=== PATIENT | female | born 1945 | race African-American/Black ===

== ENCOUNTER 2017-05-14 00:07 | Inpatient (IN) | payer OTHER ==
[~2017-05-14] VITALS: Ht 157.5 cm; Wt 73.9 kg
[~2017-05-14 00:07] MED LIST: ASPIRIN ADULT L81 M3 PO; ATORVASTATIN CA40 M1 PO; CHILDREN S PO; FLUTICASON0.05 MG/Ac NS; ISOSORBIDE MONO60 MG PO; LASIX20 MG PO; MORPHINE SULFAT15 M5; MORPHINE SULFAT30 M1 PO; MULTI VITAMINS1 TA1; MULTI VITAMINS1 TAB PO; OXYCODONE HYDRO15 MG PO; OXYCODONE30 MG PO; PLA75 PO; POTASSIUM; VITAMIN B12
--- NOTE | 2017-05-14 00:24 | NUR ---
RECEIVED A 71 Y/O F FOR CP SINCE 1930. BIB [facility]. PT REFUSED IV START IN THE FIELD, WAS GIVEN ASA 324 MG PO AND 1 NITRO SL. PT NOTED TO BE FALLING ASLEEP DURING ASSESSMENT. PT PLACED IN GOWN, PT REFUSED TO TAKE OFF HER BRA. PT PLACE D IN CM, PULSE OX AND BP CUFF. WILL CONTINUE TO MONITOR FOR SAFETY
--- NOTE | 2017-05-14 00:45 | NUR ---
MSE DONE BY DR OVALLES
[2017-05-14 01:26] LABS: CALCIUM 8.5 mg/dL (8.5-10.1); CARBON DIOXIDE 27.9 mmol/L (21-32); CHLORIDE SERUM 106 mmol/L (98-107); CREATININE SERUM 0.8 mg/dL (0.6-1.0); GLUCOSE SERUM 99 mg/dL (74-106); POTASSIUM SERUM 3.8 mmol/L (3.5-5.1); SODIUM SERUM 140 mmol/L (136-145)
[2017-05-14 01:27] LABS: PLATELET COUNT 182 x10^3mcL (130-400)
[2017-05-14 01:31] LABS: ALKALINE PHOSPHATASE 95 U/L (46-116); ALT/SGPT 23 U/L (14-59); AST/SGOT 28 U/L (15-37); BILIRUBIN TOTAL 0.3 mg/dL (0.20-1.00); TOTAL PROTEIN, SERUM 6.7 g/dL (6.4-8.2)
[2017-05-14 01:33] LABS: ALBUMIN 3.3 g/dL (3.4-5.0)
--- NOTE | 2017-05-14 01:53 | NUR ---
PT RESTING COMFORTABLY IN BED. PT IN NAD
[2017-05-14 02:09] LABS: BAND NEUTROPHIL 3 % (0-10); BASOPHIL 1 % (0-2); MONOCYTE 7 % (0-7); SEGMENTED NEUTROPHILS 39 % (37-75); rbc morphology (normal/abnorm) NORMAL (NORMAL)
[2017-05-14 02:10] LABS: PLATELET MORPHOLOGY PLATELETS NORMAL
[2017-05-14] MEDS ORDERED: METOPROLOL TART25 M1 PO (03:27)
[2017-05-14] MEDS ORDERED: ENALAPRIL MALE2.5 MG PO (03:28)
[2017-05-14] MEDS ORDERED: ISOSORBIDE MONO30 MG PO (03:29)
[2017-05-14] MEDS ORDERED: LIPITOR40 MG PO (03:30)
[2017-05-14] MEDS ORDERED: CEPHALEXIN500 MG PO (03:30)
[2017-05-14] MEDS ORDERED: CLOPIDOGREL75 M1 PO (03:30)
--- NOTE | 2017-05-14 03:39 | NUR ---
REPORT GIVEN TO MONSTER.
--- NOTE | 2017-05-14 03:50 | NUR ---
ATTEMPTED TO INSERT AN IV TWICE. NO SUCCESS. OTHER STAFF MEMBER WILL ATTEMPT IV START
--- NOTE | 2017-05-14 04:21 | NUR ---
PT TRANSPORTED TO [facility] VIA [facility] ON CM BY NICK AMIN AND PERLITA MURRAY. PT IN NAD
[2017-05-14 04:40] VITALS: BP 118/60
--- NOTE | 2017-05-14 05:00 | NUR ---
PATIENT RECEIVED FROM ED VIA [facility] ASSISTED BY RN. PATIENT C/O 9/10 SHARP CHEST PAIN AT THIS TIME. WILL MEDICATE PER DOCTOR'S ORDER. IV SITE TO RIGHT FOREARM, PATENT AND INTACT. IV FLUID STARTED PER DOCTOR'S ORDER. PATIENT ORIENTED TO ROOM AND CALL LIGHT. BED IN LOWEST POSITION. CALL LIGHT WITHIN REACH. WILL CONTINUE TO MONITOR.
[2017-05-14 05:34] VITALS: BP 118/60
--- NOTE | 2017-05-14 07:11 | NUR ---
BEDSIDE REPORT RECEIVED FROM [facility] SHIFT NURSE AT THIS TIME. PATIENT ASLEEP SITTING UP RIGHT WITH CHIN TO CHEST, BREATHING EVEN AND UNLABORED. ALL SAFETY MEASURES IN PLACE, WILL CONTINUE TO MONITOR.
[2017-05-14 07:38] VITALS: BP 131/64
--- NOTE | 2017-05-14 07:38 | NUR ---
PATIENT ASLEEP, AROUSABLE VIA TACTILE STIMULI, REMAINS SLEEPY WITH EYES SEMI CLOSED THROUGHOUT ASSESSMENT. MID STERNAL PAIN PRESENT PER PATIENT, TELE#[id number], HR 75. SCD'S IN PLACE, ON ROOM AIR. NS INFUSING TO RFA AT 30 ML/HR, NO REDNESS OR INFILTRATION NOTED TO SITE. CALM AND COOPERATIVE WITH CARE, ALL SAFETY MEASURES IN PLACE, WILL CONTINUE TO MONITOR.
--- NOTE | 2017-05-14 08:00 | NUR ---
ROUNDS MADE AT THIS TIME WITH MD TEAM, CHARGE NURSE MAYA, AND DR WOLFE. PATIENT AWAKE, ALERT, EATING BREAKFAST, REPORTS NO CONCERNS. ALL SAFETY MEASURES IN PLACE, WILL CONTINUE TO MONITOR.
--- NOTE | 2017-05-14 08:45 | NUR ---
DR NIELSEN IN TO ASSESS PATIENT AT THIS TIME. PATIENT ASLEEP, EASILY AROUSED VIA VERBAL STIMULI. WILL CONTINUE TO MONITOR.
--- NOTE | 2017-05-14 09:00 | NUR ---
CALL FROM [facility] ASSISTANT STATING PATIENT REFUSED LAB DRAW, PATIENT STATES SHE DOES NOT WANT TO BE POKED AGAIN, AND SHE IS A HARD STICK. PATIENT AROUSABLE VIA TACTILE STIMULI BUT STILL SLEEPY. WILL CONTINUE TO MONITOR.
[2017-05-14 09:43] LABS: MAGNESIUM 2.1 mg/dL (1.8-2.4)
[2017-05-14 09:51] LABS: FREE T4 0.99 ng/dL (0.76-1.46); FREE THYROXINE INDEX 2.2 ug/dL (1.4-4.5); T4(THYROXINE) 7.1 ug/dL (4.7-13.3)
[2017-05-14 09:59] LABS: CHOLESTEROL/HDL RATIO 2.1
[2017-05-14 10:06] LABS: T3 TOTAL 1.56 ng/mL
--- NOTE | 2017-05-14 10:48 | NUR ---
PATIENT AWAKE, ALERT, NO SIGNS OF DISTRESS NOTED, WATCHING TV, NURSE AID FREDIA AT BEDSIDE ATTENDING TO NEEDS, WILL CONTINUE TO MONITOR.
[2017-05-14 11:51] VITALS: Ht 157.5 cm; Wt 73.9 kg
--- NOTE | 2017-05-14 12:39 | NUR ---
PATIENT AWAKE, ALERT, NO SIGNS OF DISTRESS NOTED. WATCHING TV, ALL SAFETY MEASURES IN PLACE, WILL CONTINUE TO MONITOR.
[2017-05-14 13:47] VITALS: BP 112/43
[2017-05-14 16:40] VITALS: BP 118/56
--- NOTE | 2017-05-14 19:20 | NUR ---
PATIENT RECEIVED RESTING WITH EYES CLOSED. AWAKENS WITH VERBAL STIMULUS. NO DISTRESS NOTED. PATIENT C/O 9/10 SHARP CHEST PAIN. WILL MEDICATE PER DOCTOR'S ORDER. IV SITE TO RIGHT FOREARM, INFILTRATED. WILL DC AND REINSERT. BED IN LOWEST POSITION. CALL LIGHT WITHIN REACH. WILL CONTINUE TO MONITOR.
--- NOTE | 2017-05-14 20:00 | NUR ---
IV DC'D FROM RIGHT FOREARM, 22G REINSERTED TO LEFT FOREARM, PATENT. IV FLUID RESTARTED PER DOCTOR'S ORDER.
[2017-05-14 20:04] LABS: RED BLOOD CELLS 3.5 M/mm3 (4.10-5.10)
--- NOTE | 2017-05-14 21:25 | NUR ---
NOTIFIED DR WILSON PATIENT HAS BLOOD PRESSURE MEDICATION SCHEDULED FOR TONIGHT AND IS ALSO REQUESTING PAIN MEDICATION BUT CONTINUES TO REFUSE VITALS TO BE TAKEN.
--- NOTE | 2017-05-14 22:40 | NUR ---
RECEIVED REPORT FROM BRENNAN HOOK. PT RESTING WITH EYES CLOSED. AROUSABLE WITH VERBAL STIMULUS. NO DISTRESS NOTED. IV ON LFA, NS INFUSING. SAFETY MEASURES IN PLACE. INSTRUCTED PT TO CALL IF ASSISTANCE IS NEEDED. CALL LIGHT WITHIN REACH.
[2017-05-14 22:45] VITALS: BP 116/55
[2017-05-15 06:32] VITALS: BP 135/65
[2017-05-15 06:44] LABS: microscopic required? NO
[2017-05-15 06:58] LABS: PLATELET COUNT 174 x10^3mcL (130-400)
--- NOTE | 2017-05-15 06:58 | NUR ---
PT SLEPT AT LONG INTERVALS DURING SHIFT. C/O NECK PAIN X1, MEDICATED WITH OXYCODONE PER ORDER. SAFETY MEASURES MAINTAINED. ALL NEEDS ATTENDED TO. CALL LIGHT WITHIN REACH. WILL ENDORSE CONTINUITY OF CARE TO ONCOMING RN.
[2017-05-15 07:00] LABS: urine erythrocyte NEGATIVE (NEGATIVE)
[2017-05-15 07:06] LABS: CALCIUM 8.4 mg/dL (8.5-10.1); CARBON DIOXIDE 28.2 mmol/L (21-32); CHLORIDE SERUM 106 mmol/L (98-107); CREATININE SERUM 0.7 mg/dL (0.6-1.0); GLUCOSE SERUM 111 mg/dL (74-106); MAGNESIUM 2.1 mg/dL (1.8-2.4); PHOSPHOROUS 3.4 mg/dL (2.5-4.9); POTASSIUM SERUM 3.8 mmol/L (3.5-5.1); SODIUM SERUM 140 mmol/L (136-145)
[2017-05-15 07:13] LABS: IRON 39 ug/dL (50-170); TOTAL IRON BINDING CAPACITY 367 ug/dL (250-450)
[2017-05-15 07:16] VITALS: BP 127/48
--- NOTE | 2017-05-15 07:16 | NUR ---
BEDSIDE REPORT RECEIVED FROM [facility] SHIFT NURSE AT THIS TIME. PATIENT AWAKE, ALERT, NO SIGNS OF DISTRESS NOTED. VITAL SIGNS TAKEN, BP 127/48, HR 74, RR 20, SPO2 95% ON ROOM AIR, T 98.2, PATIENT REFUSING MORNING BP MEDS (SEE EMAR). DENIES CHEST PAIN, MILD DIZZINESS, TELE# [id number]. SCD'S IN PLACE, NS INFUSING TO LFA AT 30 ML/HR, NO REDNESS OR INFILTRATION NOTED TO SITE. PATIENT WITHDRAWS AND PUTS ARMS UP THROUGHOUT ASSESSMENT STATING "THAT'S ENOUGH", PLACES HANDS ON MINE THROUGHOUT ASSESSMENT. ALL SAFETY MEASURES REVIEWED AND IN PLACE, WILL CONTINUE TO MONITOR.
[2017-05-15 09:10] LABS: BAND NEUTROPHIL 2 % (0-10); BASOPHIL 0 % (0-2); MONOCYTE 11 % (0-7); SEGMENTED NEUTROPHILS 41 % (37-75)
--- NOTE | 2017-05-15 09:10 | NUR ---
DR WOLFE AND MYSELF WENT TO THE ROOM TO UPDATE CARE PLAN. DR WOLFE APPROACHED PATIENT ABOUT REFUSING BLOOD DRAWN AND PATIENT DENIED. SHE SAID THAT DR WOLFE HAS WRONG INFORMATION, NIALL COOPER IS LYING AND SHE NEVER REFUSED BLOOD DRAWN. SHE ALSO MENTIONED THAT HER FAMILY IS OUT OF TOWN AND THEY MAY HAVE TO FLY BACK NOW BECAUSE OF THIS. INFORMATION WAS VERIFIED WITH ATTENDING NURSE CORAL WHO CONFIRMED THAT PATIENT REFUSED YESTERDAY BLOOD TO BE DRAWN FOR TROPONIM LEVEL.
[2017-05-15 09:12] LABS: rbc morphology (normal/abnorm) ABNORMAL (NORMAL)
[2017-05-15 09:13] LABS: ovalocyte/elliptocyte 1+
--- NOTE | 2017-05-15 09:30 | NUR ---
DR WOLFE AND DR DONOHUE IN TO ASSESS PATIENT AT THIS TIME. WILL CONTINUE TO MONITOR.
--- NOTE | 2017-05-15 09:38 | NUR ---
WENT BACK TO THE ROOM WITH DR WOLFE WHO INFORMED THE PATIENT THAT THREE PHLEBOTOMISTS:JD, DOMONIQUE AND ALEC ALL SAID THAT SHE REFUSED THE BLOOD DRAWN FOR TROPONIM YESTERDAY. PATIENT VERY UPSET AND STATING THAT SHE WILL COMPLAIN TO HER DAUGHTER WHO IS A DOCTOR. dR. Wolfe OFFERED TO CALL THE PT'S DAUGHTER AND DISCUSS THE SITUATION AND PT'S CONDITION WITH THE DAUGHTER, HOWEVER, PT REFUSED STATING THAT HER DAUGHTER IS ON VACATION AND EVEN SHE IS NOT SUPPOSED TO BE CALLING HER. dR WOLFE STATED THAT WE CAN HAVE THE AERONAUTICAL ENGINEERING PROFESSOR COME BACK AND DRAW THE TROPONINS NOW, BUT PATIENT IS NOW STATING THAT SHE WANTS TO TALK TO THE AERONAUTICAL ENGINEERING PROFESSOR ABOUT THE BANDAID ON HER ARM YESTERDAY AND WHERE IT CAME FROM BEFORE SHE AGREES TO TAKE ANY MORE BLOOD TESTS. SHE ALSO WROTE DOWN EVERYTHING WE WERE SAYING AND ACCUSED CHARGE NURSE OF , MYSELF, OF MOVING HER NECK.
--- NOTE | 2017-05-15 09:40 | NUR ---
PAGE SENT TO DR NIELSEN AT THIS TIME REGARDING PATIENT REFUSING LASIX, COLACE, METOPROLOL, AND VASOTEC (SEE EMAR), BP 127/48. WILL CONTINUE TO MONITOR.
--- NOTE | 2017-05-15 12:36 | NUR ---
PATIENT RESTING IN BED, TALKING ON CELL PHONE, NO SIGNS OF DISTRESS NOTED, WILL CONTINUE TO MONITOR.
[2017-05-15 13:40] VITALS: BP 135/39
--- NOTE | 2017-05-15 16:19 | NUR ---
PATIENT SLEEPING, NO SIGNS OF DISTRESS NOTED, BREATHING EVEN AND UNLABORED, WILL CONTINUE TO MONITOR.
[2017-05-15 17:30] VITALS: BP 134/54
--- NOTE | 2017-05-15 19:01 | NUR ---
PATIENT REFUSING IVF FLUIDS, DR NIELSEN MADE AWARE, WILL ENDORSE CARE.
--- NOTE | 2017-05-15 19:25 | NUR ---
RECEIVED REPORT FROM DAY SHIFT RN. PT AWAKE, SITTING UP IN BED. NO DISTRESS NOTED. PT REFUSED IV FLUIDS. SALINE LOCK ON LFA, INTACT. SAFETY MEASURES IN PLACE. INSTRUCTED PT TO CALL IF ASSISTANCE IS NEEDED. CALL LIGHT WITHIN REACH.
--- NOTE | 2017-05-15 19:55 | NUR ---
PT C/O PAIN ON THE RIGHT SIDE OF NECK. DR NAYLOR MADE AWARE.
--- NOTE | 2017-05-15 20:05 | NUR ---
DR NAYLOR IN PT'S ROOM TALKING TO THE PATIENT AT THIS TIME.
[2017-05-15 21:30] VITALS: BP 116/47
--- NOTE | 2017-05-15 21:35 | NUR ---
PT C/O UPPER CHEST SORENESS/PAIN. DR NAYLOR AT BEDSIDE ASSESSING THE PT.
--- NOTE | 2017-05-15 23:37 | NUR ---
REPORT GIVEN TO BRENNAN RODRIGUEZ. PT SLEEPING AT THIS TIME. NO DISTRESS NOTED. ENDORSED CONTINUITY OF CARE.
--- NOTE | 2017-05-15 23:37 | NUR ---
RECEIVED REPORT FROM BRENNAN ELMORE FOR PT'S CONTINUITY OF CARE. PT SLEEPING COMFORTABLY IN NO DISTRESS. WILL CONT TO MONITOR.
--- NOTE | 2017-05-16 04:52 | NUR ---
PT SLEPT COMFORTABLY THROUGH OUT THE NIGHT. WAS IN NO ACUTE DISTRESS OR DISCOMFORT. SAFETY MEASURES WERE ENSURED. CALL LIGHT WITHIN REACH.
[2017-05-16 05:30] VITALS: BP 127/62
--- NOTE | 2017-05-16 08:16 | NUR ---
A+OX4, FORGETFUL AT TIMES, DENIES NAUSEA, SOB, AND HEADACHE, PULSES STRONG AND EQUAL BILATERALLY, SCDS PRESENT, LUNG SOUNDS CLEAR, TOLERATING ROOM AIR, BOWEL SOUNDS ACTIVE, VOIDING, GENERALIZED WEAKNESS, SPECIFIC WEAKNESS AND PAIN IN NECK, BACK, AND KNEE, SKIN INTACT, IV IN LFA, SITE WNL, REFUSING IV FLUIDS. PT CONSTANTLY USING CALL LIGHT, VERY DEMANDING AND NEEDY.
[2017-05-16 08:19] VITALS: BP 141/68
--- NOTE | 2017-05-16 08:39 | NUR ---
PT REFUSING TO TAKE 0800 AND 0900 MEDICATIONS AT ONE TIME. STATES SHE MUST TAKE 2 PILLS EVERY 30 MINUTES. TO COMPLY WITH THIS REQUEST, MEDS MAY BE ADMINISTERED LATE.
--- NOTE | 2017-05-16 09:49 | NUR ---
PT COMPLAINING OF SOB, PLACED ON NC 2 L, REQUESTING "MEDICATION PACKAGE" THAT SHE BROUGHT IN WHEN SHE WAS ADMITTED, USES CALL LIGHT FREQUENTLY, REQUESTS TO SPEAK WITH DR FREQUENTLY.
[2017-05-16] MEDS ORDERED: FER300 PO (10:47)
[2017-05-16] MEDS ORDERED: VITC PO (10:49)
--- NOTE | 2017-05-16 11:06 | NUR ---
PT REFUSING TO TAKE VITAMIN C PO AND FERROUS SULFATE PO UNTIL HER LUNCH ARRIVES.
--- NOTE | 2017-05-16 12:00 | NUR ---
PT USING BEDSIDE COMMODE, NO RESPIRATORY DISTRESS NOTED, USES CALL LIGHT CONSTANTLY, DEMANDING, UNCOOPERATIVE.
[2017-05-16 12:03] VITALS: BP 141/68
--- NOTE | 2017-05-16 12:49 | NUR ---
PT SITTING UP IN BED, NO RESPIRATORY DISTRESS NOTED, DENIES PAIN, SOB, NAUSEA, AND HEADACHE. EATING LUNCH.
--- NOTE | 2017-05-16 14:30 | NUR ---
DR DONOHUE IN THE ROOM TO SEE PT, PERFORMED BREAST EXAM AND LYMPH NODE EXAM AT PT'S REQUEST, NO ABNORMALITY FOUND. PT REQUESTED TO SPEAK TO DR DONOHUE AGAIN, DR DONOHUE KIND ENOUGH TO COME BACK TO EXPLAIN WHY PT WAS ON ISOLATION.
--- NOTE | 2017-05-16 14:32 | NUR ---
IV REMOVED CATHETER INTACT, PT GIVEN DISCHARGE INSTRUCTIONS, VERBALIZED UNDERSTANDING, OFF THE UNIT WITH ALL BELONGINGS, ESCORTED BY STRIPER MACHINE.
[2017-05-16] MEDS ORDERED: VITAMIN B-12100 MCG PO (17:13)
== END 2017-05-16 14:33 | disposition home or self-care (01) | DRG 206 ==
LOC: ED 00:07 → DU 03:16 → MU 05-15 11:55
PROVIDERS: Emergency Medicine; ADMIT Family Medicine
DX: M94.0 Chondrocostal junction syndrome [Tietze] (principal); E44.0 Moderate protein-calorie malnutrition; I25.10 Atherosclerotic heart disease of native coronary artery without angina pectoris; Z95.1 Presence of aortocoronary bypass graft; I11.9 Hypertensive heart disease without heart failure; M51.34 Other intervertebral disc degeneration, thoracic region; M51.37 Other intervertebral disc degeneration, lumbosacral region; M46.1 Sacroiliitis, not elsewhere classified; M17.9 Osteoarthritis of knee, unspecified; D50.9 Iron deficiency anemia, unspecified; Z68.29 Body mass index [BMI] 29.0-29.9, adult
CPT/HCPCS: 82962; 83880; 84439; J1170; J7030; Q0092

== ENCOUNTER 2018-10-26 23:43 | Inpatient (IN) | payer OTHER, MEDICARE ==
[~2018-10-26] VITALS: Ht 157.5 cm; Wt 76.2 kg
[~2018-10-26 23:43] MED LIST changes: +BYSTOLIC5 M1 PO; +CEPHALEXIN500 MG PO; +CLARITIN10 MG PO; +CLOPIDOGREL75 M1 PO; +ENALAPRIL MALE2.5 MG PO; +FER300 PO; +FLO4 PO; +ISOSORBIDE MONO30 MG PO; +LIPITOR40 MG PO; +METOPROLOL TART25 M1 PO; +VITAMIN B-12100 MCG PO; +VITC PO
[2018-10-27 02:08] LABS: BASOPHIL % 0.4 % (0-2); PLATELET COUNT 169 x10^3mcL (130-400)
[2018-10-27 02:09] LABS: RED CELL DISTRIBUTION WIDTH 15.1 % (11.5-14.5)
[2018-10-27 02:15] LABS: CALCIUM 8.4 mg/dL (8.5-10.1); CARBON DIOXIDE 28.8 mmol/L (21-32); CHLORIDE SERUM 106 mmol/L (98-107); CREATININE SERUM 0.7 mg/dL (0.6-1.0); GLUCOSE SERUM 86 mg/dL (74-106); POTASSIUM SERUM 3.7 mmol/L (3.5-5.1); SODIUM SERUM 144 mmol/L (136-145)
[2018-10-27 02:20] LABS: ALBUMIN 4.3 g/dL (3.4-5.0); ALKALINE PHOSPHATASE 101 U/L (46-116); ALT/SGPT 58 U/L (14-59); AST/SGOT 59 U/L (15-37); BILIRUBIN TOTAL 0.46 mg/dL (0.20-1.00); TOTAL PROTEIN, SERUM 7.9 g/dL (6.4-8.2)
[2018-10-27 03:46] VITALS: BP 116/55
[2018-10-27 04:13] LABS: microscopic required? YES; urine erythrocyte TRACE (NEGATIVE)
[2018-10-27 04:22] LABS: AMPHETAMINE QUAL UR NONE DETECTED (See below)
[2018-10-27 04:25] LABS: MAGNESIUM 2.2 mg/dL (1.8-2.4); PHOSPHOROUS 3.6 mg/dL (2.5-4.9)
[2018-10-27 08:30] VITALS: BP 100/54
[2018-10-27 18:32] VITALS: BP 132/84
[2018-10-27 22:25] VITALS: BP 142/68
[2018-10-28 05:43] VITALS: BP 143/66
[2018-10-28 07:58] LABS: CALCIUM 8.7 mg/dL (8.5-10.1); CARBON DIOXIDE 26.3 mmol/L (21-32); CHLORIDE SERUM 107 mmol/L (98-107); CREATININE SERUM 0.7 mg/dL (0.6-1.0); GLUCOSE SERUM 89 mg/dL (74-106); MAGNESIUM 2.3 mg/dL (1.8-2.4); PHOSPHOROUS 3.1 mg/dL (2.5-4.9); POTASSIUM SERUM 3.7 mmol/L (3.5-5.1); SODIUM SERUM 140 mmol/L (136-145)
[2018-10-28 08:10] LABS: PLATELET COUNT 160 x10^3mcL (130-400); RED CELL DISTRIBUTION WIDTH 14.1 % (11.5-14.5)
[2018-10-28 13:04] VITALS: BP 142/68
[2018-10-28 13:20] LABS: ATYPICAL LYMPH 5 %; BAND NEUTROPHIL 2 % (0-10); MONOCYTE 10 % (0-7)
[2018-10-28 13:21] LABS: SEGMENTED NEUTROPHILS 30 % (37-75)
[2018-10-28 13:22] LABS: PLATELET MORPHOLOGY PLATELETS NORMAL; rbc morphology (normal/abnorm) NORMAL (NORMAL)
[2018-10-28 18:03] VITALS: BP 140/79
[2018-10-28 19:19] LABS: microscopic required? YES; urine erythrocyte 3+ (NEGATIVE)
[2018-10-28 21:39] VITALS: BP 100/39
[2018-10-29 07:14] LABS: BASOPHIL % 0.2 % (0-2); PLATELET COUNT 179 x10^3mcL (130-400); RED CELL DISTRIBUTION WIDTH 14.1 % (11.5-14.5)
[2018-10-29 07:18] LABS: CALCIUM 8.7 mg/dL (8.5-10.1); CARBON DIOXIDE 28.5 mmol/L (21-32); CHLORIDE SERUM 110 mmol/L (98-107); CREATININE SERUM 0.8 mg/dL (0.6-1.0); GLUCOSE SERUM 99 mg/dL (74-106); MAGNESIUM 2.3 mg/dL (1.8-2.4); PHOSPHOROUS 2.8 mg/dL (2.5-4.9); POTASSIUM SERUM 3.7 mmol/L (3.5-5.1); SODIUM SERUM 145 mmol/L (136-145)
[2018-10-29 10:21] VITALS: BP 140/81
[2018-10-29 13:48] VITALS: BP 137/64
[2018-10-29 18:07] VITALS: BP 125/56
[2018-10-29] MEDS ORDERED: LEVAQUIN750 MG PO (21:03)
[2018-10-29] MEDS ORDERED: LAC PO (21:03)
[2018-10-29 21:10] VITALS: BP 145/80
[2018-10-30 03:14] VITALS: BP 145/80
[2018-10-30 05:47] VITALS: BP 134/40
[2018-11-01 09:33] VITALS: Ht 157.5 cm; Wt 76.2 kg
== END 2018-10-30 07:10 | DRG 203 ==
LOC: ED 23:43 → DU 10-27 02:46
PROVIDERS: Emergency Medicine; Family Medicine
DX: M94.0 Chondrocostal junction syndrome [Tietze] (principal); I11.0 Hypertensive heart disease with heart failure; I50.9 Heart failure, unspecified; N39.0 Urinary tract infection, site not specified; E78.5 Hyperlipidemia, unspecified; G89.29 Other chronic pain; M54.5 Low back pain; Z60.2 Problems related to living alone; M81.0 Age-related osteoporosis without current pathological fracture; E78.00 Pure hypercholesterolemia, unspecified; I25.10 Atherosclerotic heart disease of native coronary artery without angina pectoris; Z79.82 Long term (current) use of aspirin; Z68.28 Body mass index [BMI] 28.0-28.9, adult; Z95.1 Presence of aortocoronary bypass graft; Z86.718 Personal history of other venous thrombosis and embolism; Z88.6 Allergy status to analgesic agent; Z88.8 Allergy status to other drugs, medicaments and biological substances; Z90.710 Acquired absence of both cervix and uterus; Z87.442 Personal history of urinary calculi; Z90.49 Acquired absence of other specified parts of digestive tract; Z79.899 Other long term (current) drug therapy; Z82.49 Family history of ischemic heart disease and other diseases of the circulatory system
CPT/HCPCS: 83880; 87046; 87046-59; 97116-GP; J2405; J7030; Q0092